=== PATIENT | female | born 1990 | race Caucasian/White ===

== ENCOUNTER 2017-03-02 10:21 | Emergency (ER) | payer SELFPAY ==
[~2017-03-02] VITALS: Ht 160 cm; Wt 46.3 kg
[~2017-03-02 10:21] MED LIST: AMOXICILLIN500 MG PO; DIFLUCAN150 MG PO; MOTRIN800 MG PO; PHENERGAN W/ DE30 ML PO; PREDNICOT10 MG PO; PRENATAL1 TA1 PO; ULTRAM50 MG PO
[2017-03-02 10:50] LABS: BILIRUBIN NEGATIVE (NEGATIVE); BLOOD 2+ (NEGATIVE); CLARITY SL CLOUDY (CLEAR); GLUCOSE NEGATIVE (NEGATIVE); KETONE TRACE (NEGATIVE); LEUKO ESTERASE 2+ (NEGATIVE); NITRITE NEGATIVE (NEGATIVE); SPECIFIC GRAVITY <= 1.005 (1.005-1.030); UROBILINOGEN 0.2 E.U./dl (0.2-1.0)
[2017-03-02 10:58] LABS: COLOR YELLOW (YELLOW); WBC 21-30 wbc/hpf (0-5)
[2017-03-02 10:59] LABS: BACTERIA 2+; RBC 21-30 rbc/hpf (0-2)
[2017-03-02] MEDS ORDERED: CIPRO500 MG PO (11:02)
== END 2017-03-02 11:09 | disposition home or self-care (01) ==
LOC: ED 10:21
PROVIDERS: Emergency Medicine
DX: N11.1 Chronic obstructive pyelonephritis (principal); R11.0 Nausea; R61 Generalized hyperhidrosis; R68.83 Chills (without fever); K59.00 Constipation, unspecified; R35.0 Frequency of micturition; R51 Headache; F17.200 Nicotine dependence, unspecified, uncomplicated

== ENCOUNTER 2025-01-08 09:57 | Emergency (ER) | payer SELFPAY ==
[~2025-01-08] VITALS: Ht 157.4 cm; Wt 49.9 kg
[~2025-01-08 09:57] MED LIST changes: +CIPRO500 MG PO
== END 2025-01-08 12:16 | disposition home or self-care (01) ==
LOC: ED 09:57
DX: S90.31XA Contusion of right foot, initial encounter (principal); S60.211A Contusion of right wrist, initial encounter; S20.211A Contusion of right front wall of thorax, initial encounter; Z98.890 Other specified postprocedural states; Y04.8XXA Assault by other bodily force, initial encounter; Y93.89 Activity, other specified; Y92.89 Other specified places as the place of occurrence of the external cause; Y99.8 Other external cause status